=== PATIENT | female | born 1960 | race Two or more races ===

== ENCOUNTER 2017-03-20 08:32 | Outpatient (CLI) | payer OTHER ==
[2017-03-20] VITALS (16 sets, daily range): BP systolic 114–144; BP diastolic 50–68
[~2017-03-20] VITALS: Ht 154.9 cm; Wt 90.7 kg
[2017-03-20 09:04] LABS: MEAN CORPUSCULAR HEMOGLOBIN 31.4 PG (27.0-31.0); MEAN CORPUSCULAR HGB CONC 32.5 G/DL (32.0-36.0); MEAN CORPUSCULAR VOLUME 97 FL (80-99); MEAN PLATELET VOLUME 13.6 FL (6.5-10.1); PLATELET COUNT 71 K/UL (150-450); RED BLOOD COUNT 5.14 M/UL (4.20-5.40); RED CELL DISTRIBUTION WIDTH 12.9 % (11.6-14.8); WHITE BLOOD COUNT 4.7 K/UL (4.8-10.8)
[2017-03-20 09:08] LABS: INR 1.7 (0.9-1.1); PROTHROMBIN TIME 17.3 SEC (9.30-11.50)
[2017-03-20] MEDS ORDERED: ENALAPRIL MALEAT5 MG ORAL (09:21)
[2017-03-20] MEDS ORDERED: GLIPIZIDE5 MG ORAL (09:30)
[2017-03-20] MEDS ORDERED: INDERAL20 MG ORAL (09:30)
[2017-03-20 09:37] LABS: LYMPHOCYTES % (MANUAL) 5 % (20-45); NEUTROPHILS % (MANUAL) 90 % (45-75); TOTAL CELLS COUNTED 100
[2017-03-20 09:40] LABS: BAND NEUTROPHILS % (MANUAL) 0 % (0-8); BASOPHILS % (MANUAL) 0 % (0-2); EOSINOPHILS % (MANUAL) 0 % (0-3); PLATELET ESTIMATE DECREASED
[2017-03-20 09:41] LABS: ANISOCYTOSIS 1+; PLATELET MORPHOLOGY NORMAL
[2017-03-20] MEDS ORDERED: Midazolam 2mg/2ml Inj ONE (10:19)
[2017-03-20] MEDS ORDERED: fentaNYL 100 mcg/2 mL IV ONE (10:19)
[2017-03-20] MEDS ORDERED: Lidocaine 1% Plain 30 ml INJ ONE (10:52)
[2017-03-20] MEDS ORDERED: Sodium Bicarbonate 8.4% 50ml Inj ONE (10:52)
--- NOTE | 2017-03-20 11:03 | Moderate Sedation - Procedural ---
Moderate Sedation HPI Home Medication Reported Medications Glipizide* (GLIPIZIDE*) 5 Mg Tablet, 5 MG ORAL BIDAC, TAB 03/20/17 Propranolol HCl (Propranolol HCl) 20 Mg Tablet, 20 MG ORAL, TAB 03/20/17 Enalapril Maleate* (ENALAPRIL MALEATE*) 5 Mg Tablet, 5 MG ORAL TWICE A DAY, TAB 03/20/17 Patient History Allergies: Coded Allergies: NO KNOWN ALLERGIES (Verified Allergy, Unknown, 03/20/17) PAST MEDICAL HISTORY: Past Surgeries: Social History: Pre-Procedural Mod Sedation Date: March 20, 2017 Pre-Assessment Time: 11:03 Vital Signs within normal limits Pre-Sedation Assessment: Elective Airway Assessment (Malampati): III Heart: normal Lungs: normal Abdomen: normal Extremities: normal Pre-op Diagnosis: liver disease Evaluation Hx of untoward rxns to mod sed: No Procedures/Plans: Radiology Plan for Moderate Sedation: Midazolam, Fentanyl ASA Score: II Informed Consent The nature of the procedure/sedation; its benefits; risks and complications; and alternatives (and the risks and benefits of such alternatives) were discussed with the patient (or their legal tour sales representative), prior to the procedure. All questions were answered to the patient's (or their legal tour sales representative's) satisfaction and the patient (or their legal tour sales representative) gave informed consent to the procedure. I attest that I re-evaluated the patient just prior to the surgery and that there has been no change in the patient's H&P, except as documented below: Post Procedure Assessment Post Procedure TIme: 13:01 Communication: No Apparent Limitation Mental Status: Awake Respiration: Unlabored Skin Condition: WNL Adomen: WNL Nausea: NO Vomiting: NO SHAKIR TOUSSAINT M.D. March 20, 2017 11:03
--- NOTE | 2017-03-20 11:04 | Pre-Procedure Note/Attestation ---
Pre-Procedure Note/Attestation Complete Prior to Procedure Planned Procedure: right Procedure Narrative: ultrasound guided liver biopsy Indications for Procedure Pre-Operative Diagnosis: nonalcoholic fatty liver disease Attestation I attest that I discussed the nature of the procedure; its benefits; risks and complications; and alternatives (and the risks and benefits of such alternatives ), prior to the procedure, with the patient (or the patient's legal auto claim representative). I attest that, if there was a reasonable possibility of needing a blood transfusion, the patient (or the patient's legal auto claim representative) was given the [facility] standardized written summary, pursuant to the [place] Blood Safety Act ([place] Health and Safety Code # 1645, as amended). I attest that I re-evaluated the patient just prior to the surgery and that there has been no change in the patient's H&P, except as documented below: SHAKIR TOUSSAINT M.D. March 20, 2017 11:04
--- NOTE | 2017-03-20 14:14 | Diagnostic Imaging Report ---
Indication: Nonalcoholic liver disease Procedure: Informed consent for the procedure was obtained in [place]. The risks, benefits, and alternatives to the procedure were discussed with the patient. We were given verbal and written consent to proceed. Due to body habitus and configuration of the liver, the safest approach was deemed to be the left lobe. The right lobe was not readily approachable percutaneously. Conscious sedation was utilized and the patient was monitored per protocol. The abdomen was prepped and draped in a sterile fashion. Lidocaine was administered for local anesthesia. Dermatotomy was made. Using ultrasound guidance an 16-gauge biopsy device was advanced into the liver and a 2 cm core biopsy was performed. This was performed once. An adequate 2 cm specimen was obtained. There were no complications. The patient tolerated the procedure well. Impression: Status post successful ultrasound guided, core biopsy of the liver.
--- NOTE | 2017-03-20 14:24 | Diagnostic Imaging Report ---
Indication:Abdominal pain and distention Technique: Grayscale and duplex Doppler imaging of the abdomen performed. Comparison: None Findings: Liver demonstrated slight heterogeneity and coarsened echotexture. The right lobe was completely subcostal. Gallbladder was unremarkable. Main portal vein is patent by Doppler and shows normal hepatopedal monophasic waveform. No biliary ductal dilatation demonstrated. Kidneys appeared unremarkable bilaterally. The spleen was normal in size. No free fluid identified. Aorta appears normal caliber. CBD is 5 mm. Pancreas is unremarkable as visualized. Impression: Mild heterogeneity and coarsened echotexture of the liver. Findings are relatively nonspecific but may be seen in chronic liver disease.
== END 2017-03-20 15:00 | disposition home or self-care (01) ==
LOC: ULS 08:32
DX: R10.9 Unspecified abdominal pain (principal)
CPT/HCPCS: 36415; 47000; 76700; 76942; 82962; 85007; 85025; 85610; 85730; J2001; J2250; J3010; J3490